=== PATIENT | female | born 1945 | race Caucasian/White ===

== ENCOUNTER 2018-10-19 09:54 | Inpatient (IN) ==
--- NOTE | 2018-09-17 11:33 | PAT Medication Instructions ---
Medication Instructions Date of Service September 17, 2018 Home Medications Allergy Shot 1 dose SC MONTHLY aspirin [Aspir-81] 81 mg PO QPM buspirone 10 mg PO BID cholecalciferol (vitamin D3) 2,000 unit PO QPM cyanocobalamin (vitamin B-12) 1,000 mcg PO QPM escitalopram oxalate [Lexapro] 10 mg PO QAM famotidine [Pepcid] 20 mg PO BID fexofenadine [Emily Allergy] 180 mg PO QAM flaxseed oil 1,000 mg PO QPM furosemide [Lasix] 20 mg PO QAM lactobacillus combination no.4 3,000 mmu cells PO QAM losartan 100 mg PO QAM metformin 500 mg PO BID multivitamin 1 cap PO QAM rosuvastatin [Crestor] 5 mg PO QPM tramadol 50 mg PO Q6H PRN Continue as directed Allergy Shot 1 dose SC MONTHLY STOP taking 2 weeks before surgery (or as soon as possible if surgery is within 2 weeks) flaxseed oil 1,000 mg PO QPM DO NOT take the morning of surgery famotidine [Pepcid] 20 mg PO BID fexofenadine [Emily Allergy] 180 mg PO QAM furosemide [Lasix] 20 mg PO QAM lactobacillus combination no.4 3,000 mmu cells PO QAM losartan 100 mg PO QAM metformin 500 mg PO BID multivitamin 1 cap PO QAM Take morning of surgery With a small sip of water, OTHERWISE NOTHING TO EAT OR DRINK AFTER MIDNIGHT: buspirone 10 mg PO BID escitalopram oxalate [Lexapro] 10 mg PO QAM tramadol 50 mg PO Q6H PRN (okay to take up to 4 hours prior to surgery if needed) Take evening before surgery aspirin [Aspir-81] 81 mg PO QPM buspirone 10 mg PO BID cholecalciferol (vitamin D3) 2,000 unit PO QPM cyanocobalamin (vitamin B-12) 1,000 mcg PO QPM famotidine [Pepcid] 20 mg PO BID metformin 500 mg PO BID rosuvastatin [Crestor] 5 mg PO QPM tramadol 50 mg PO Q6H PRN (if needed) Other Notes If you have any questions please call us at [phone] or [phone] or [phone] or [phone]
--- NOTE | 2018-09-17 11:55 | Anesthesiology Consultation ---
Date of Service September 17, 2018 Assessment & Plan (1) Encounter for pre-operative examination: - Check BSG AM DOS Chart Review Chart Review: Acceptable Risk for Surgery and Patient seen in Pre Admission Testing Teaching & Discussion Pre-Anesthesia Teaching/Discussion Notes: Instructed NPO after midnight before surgery,except medications with 15 cc of water. Medication instructions provided according to the PAT guidelines. History Surgery Operation Date: 10/19/18 07:00 Proposed Procedures p Left Total Shoulder Arthroplasty - Jett Hale DO Height/Weight Height: 5 ft 3 in Weight: 110.5 kg Allergies Allergy/AdvReac Type Severity Reaction Status Date / Time monosodium glutamate Allergy Hives Verified 09/10/18 10:21 Medications Home Medications Medication Instructions Recorded Confirmed Last Taken Allergy Shot 1 dose SC MONTHLY 09/10/18 Unknown aspirin [Aspir-81] 81 mg PO QPM 09/10/18 09/10/18 Unknown buspirone 10 mg PO BID 09/10/18 09/10/18 Unknown cholecalciferol (vitamin D3) 2,000 unit PO QPM 09/10/18 09/10/18 Unknown [Vitamin D3] cyanocobalamin (vitamin B-12) 1,000 mcg PO QPM 09/10/18 09/10/18 Unknown [Vitamin B-12] escitalopram oxalate [Lexapro] 10 mg PO QAM 09/10/18 09/10/18 Unknown famotidine [Pepcid] 20 mg PO BID 09/10/18 09/10/18 Unknown fexofenadine [Emily Allergy] 180 mg PO QAM 09/10/18 09/10/18 Unknown flaxseed oil 1,000 mg PO QPM 09/10/18 09/10/18 Unknown furosemide [Lasix] 20 mg PO QAM 09/10/18 09/10/18 Unknown lactobacillus combination no.4 3,000 mmu cells PO QAM 09/10/18 09/10/18 Unknown [Probiotic] losartan 100 mg PO QAM 09/10/18 09/10/18 Unknown metformin 500 mg PO BID 09/10/18 09/10/18 Unknown multivitamin 1 cap PO QAM 09/10/18 09/10/18 Unknown rosuvastatin [Crestor] 5 mg PO QPM 09/10/18 09/10/18 Unknown tramadol 50 mg PO Q6H PRN 09/10/18 09/10/18 Unknown Past Medical History Medical History Anxiety Degenerative disc disease Depression Diabetes mellitus, type 2 NIDDM GERD (gastroesophageal reflux disease) CONTROLLED History of fatty infiltration of liver Hyperlipidemia Hypertension Morbid obesity Osteoarthritis Palpitations FELT 2/2 STRESS/ANXIETY Past Surgical History Surgical History History of colonoscopy History of craniotomy 1999 2/2 CEREBRAL ANEURYSM History of discectomy CERVICAL History of tonsillectomy History of total knee replacement B/L History of total shoulder replacement RIGHT Past Anesthesia History No Hx of Anesthesia Complications and No Family Hx of Anesthesia Complications History of PONV No Motion Sickness Screening History of Motion Sickness: No Social History Smoking Status: Never smoker Do You Dip or Chew Tobacco: No Hx Alcohol Use: Yes Alcohol type: other alcohol intake frequency: holidays/special occasions only Hx Substance Use: No substance use type: does not use Exercise / Class Metabolic Activity II 4-5 Yardwork/Stairs/Walk up hill Review of Systems Patient denies chest pain, shortness of breath, dyspnea on exertion, cough, wheezing, palpitations. Physical Exam Vital Signs VITALS BP 120/76 P 74 TEMP 98.1 SP02 95%RA RESP 12 PHYSICAL Full neck and c-spine range of motion. Full TMJ range of motion. TMD 2.5 finger breaths Mallampati Score 2 Dentition: intact, upper front right cap Lungs: clear throughout to auscultation Cardiac: regular rate and rhythm, no murmurs noted Spine: normal Carotid arteries: negative bruit Extremities: no edema Testing Electrocardiogram Date: 09/17/18 Findings: + NSR @ (69) Chest X-Ray Date: 09/17/18 Findings: + NAD There is a right shoulder prosthesis. Laboratory Results 09/17/18 12:05 09/17/18 12:05 Blood Type A Positive 09/17/18 12:05 Antibody Screen NEGATIVE 09/17/18 12:05 PT 10.9 Seconds (9.0-12.0) 09/17/18 12:05 INR 1.1 (0.9-1.1) 09/17/18 12:05 APTT 25.6 Seconds (21.0-31.0) 09/17/18 12:05
[2018-09-17 12:55] LABS: Basophils # (auto) 0.02 K/uL (0-0.2); Basophils % (auto) 0.5 %; Eosinophils # (auto) 0.11 K/uL (0-0.5); Eosinophils % (auto) 2.7 %; Hematocrit (blood only) 39.7 % (37-47); Hemoglobin 13.3 g/dL (12.0-16.0); Immature Granulocytes # (auto) 0.01 K/uL (0.00-0.02); Immature Granulocytes % (auto) 0.2 %; Mean Corpuscular Hgb Conc 33.5 g/dL (32-36); Mean Corpuscular Volume 88.6 fL (80-100); Mean Platelet Volume 10.5 fL (7.4-10.4); Monocytes # (auto) 0.31 K/uL (0.11-0.59); Monocytes % (auto) 7.6 %; Neutrophils # (auto) 1.84 K/uL (1.4-6.5); Platelet Count 146 K/uL (130-400); RDW Coefficient of Variation 13.9 % (11.5-14.5); RDW Standard Deviation 45.2 fL (36.4-46.3); Red Blood Count 4.48 M/uL (4.2-5.4); White Blood Count 4.09 K/uL (4.8-10.8)
--- NOTE | 2018-09-17 13:09 | XRay Report ---
XR chest Pre-admission PA/Lat HISTORY: Preop. COMPARISON: None. FINDINGS: The lungs are clear. Cardiac silhouette is normal in size. No pleural effusions. No pneumot horax. There is a right shoulder prosthesis. IMPRESSION: No acute process. Electronically signed by: Hang Palacios M.D. 09/17/2018 1:08 PM
[2018-09-17 13:20] LABS: INR 1.1 (0.9-1.1); Partial Thromboplastin Ratio 0.9; Partial Thromboplastin Time 25.6 Seconds (21.0-31.0); Prothrombin Time 10.9 Seconds (9.0-12.0)
[2018-09-17 14:10] LABS: BUN Creatinine Ratio 13.1 (10-20); Creatinine Clr Calc Pharmacy 49.3 ml/min; Est GFR (African American) 50.1; Est GFR (Non-African American) 43.2; Potassium 3.9 mmol/L (3.5-5.1)
--- NOTE | 2018-10-16 15:33 | History & Physical Report ---
Date of Service October 16, 2018 Assessment & Plan (1) Primary osteoarthritis of left shoulder: We will proceed with a left total shoulder arthroplasty. Postoperatively she will be placed in a sling and kept overnight for postop medical management. She plans to use [facility] physical therapy in [place] postoperatively. Present on Admission?: Yes History of Present Illness Chief Complaint: Primary osteoarthritis of the left shoulder Primary Care Provider: Christy Galaviz MD Juliet is a pleasant 73-year-old female who is been dealing with chronic increasing left shoulder pain. X-rays and clinical examination have been diagnostic for primary osteoarthritis of the left shoulder. After failing conservative treatment, she has elected proceed with a left total shoulder arthroplasty. She did recently have a right shoulder arthroplasty done in [place]. She has done well with that. She did develop neuropraxia of the radial nerve postoperatively but that has since resolved. Allergies Allergy/AdvReac Type Severity Reaction Status Date / Time monosodium glutamate Allergy Hives Verified 09/10/18 10:21 Home Medications Home Medications Medication Instructions Recorded Confirmed Type Allergy Shot 1 dose SC MONTHLY 09/10/18 History aspirin [Aspir-81] 81 mg PO QPM 09/10/18 09/10/18 History buspirone 10 mg PO BID 09/10/18 09/10/18 History cholecalciferol (vitamin D3) 2,000 unit PO QPM 09/10/18 09/10/18 History [Vitamin D3] cyanocobalamin (vitamin B-12) 1,000 mcg PO QPM 09/10/18 09/10/18 History [Vitamin B-12] escitalopram oxalate [Lexapro] 10 mg PO QAM 09/10/18 09/10/18 History famotidine [Pepcid] 20 mg PO BID 09/10/18 09/10/18 History fexofenadine [Emily Allergy] 180 mg PO QAM 09/10/18 09/10/18 History flaxseed oil 1,000 mg PO QPM 09/10/18 09/10/18 History furosemide [Lasix] 20 mg PO QAM 09/10/18 09/10/18 History lactobacillus combination no.4 3,000 mmu cells PO QAM 09/10/18 09/10/18 History [Probiotic] losartan 100 mg PO QAM 09/10/18 09/10/18 History metformin 500 mg PO BID 09/10/18 09/10/18 History multivitamin 1 cap PO QAM 09/10/18 09/10/18 History rosuvastatin [Crestor] 5 mg PO QPM 09/10/18 09/10/18 History tramadol 50 mg PO Q6H PRN 09/10/18 09/10/18 History Past Med/Surg History Medical History Anxiety Degenerative disc disease Depression Diabetes mellitus, type 2 NIDDM GERD (gastroesophageal reflux disease) CONTROLLED History of fatty infiltration of liver Hyperlipidemia Hypertension Morbid obesity Osteoarthritis Palpitations FELT 2/2 STRESS/ANXIETY Surgical History History of colonoscopy History of craniotomy 07/07 CEREBRAL ANEURYSM History of discectomy CERVICAL History of tonsillectomy History of total knee replacement B/L History of total shoulder replacement RIGHT Social History Preferred Language: Turkmen Communication Ability: Effective Industrial Hygienist Required: No Beliefs That Will Affect Care: None Current Living Situation: Spouse Other Information That Helps Us Care for You: No Feels Safe at Home: Yes Safety Concerns: Feels Safe At This Time Smoking Status: Never smoker Do You Dip or Chew Tobacco: No Second Hand Exposure: No Tobacco Cessation Education Requested by Patient: No Hx Alcohol Use: Yes Alcohol type: other Hx Substance Use: No Review of Systems All systems reviewed & are unremarkable except as noted in HPI & below Physical Exam Constitutional: WD/WN, vitals as above Eyes: PERRL, conjunctivae normal, anicteric sclerae ENMT: external ear and nose normal, oropharynx normal Neck: trachea midline, no thyromegaly Respiratory: normal respiratory effort Cardiovascular: RRR, no murmur, no edema Gastrointestinal (Abdomen): normal bowel sounds, soft, nontender, no hepatosplenomegaly Musculoskeletal: Physical examination of the left shoulder reveals decreased range of motion and crepitis throughout. There is good strength with full can testing and external rotation. There is tenderness palpation along the anterior glenohumeral joint line. The right upper extremity is neurovascularly intact. Psychiatric: A+Ox3, euthymic affect Results & Data Diagnostic Findings Radiographs of the left shoulder show osteoarthritis of the glenohumeral joint. There is joint space narrowing, osteophyte formation, and [id number] articulation.
[~2018-10-19 09:54] MED LIST: ACETAMINOPHEN 1000 MG/100 ML IV IV ONE; ACETAMINOPHEN 500 MG TAB PO SCH; BUPIVACAINE 0.5 % 5 MG/1 ML PF 10ML VIAL ONE; CEFAZOLIN 3000MG 72.5 ML IV SCH; FAMOTIDINE 20 MG TAB PO SCH; GABAPENTIN 300 MG PO SCH; LR 500ML BOLUS IV SCH; LR 60ML/HR IV SCH; ROPIVACAINE 0.5% HCL/PF 150 MG, BUPIVACAINE 0.5% MPF 30 ML, EPINEPHrine 30MG/30ML (OR U... INFIL SCH; TRANEXAMIC ACID 1,000 MG **IV Intra-op IV SCH; TRANEXAMIC ACID 1,000 MG **IV Pre-op IV SCH
--- NOTE | 2018-10-19 10:11 | History & Physical Bridge Note ---
Date of Service October 19, 2018 History & Physical Bridge Note I have examined the patient, reviewed the History & Physical and in the interval since the performance of the History & Physical I have noted the following changes of clinical significance: no changes noted
[2018-10-19] MEDS ORDERED: fentaNYL citrate 100 MCG/2 ML VIAL IV PRN (10:31)
[2018-10-19] MEDS ORDERED: ATROPINE SULFATE 0.1 MG/ML 10ML SYR IV PRN (10:31)
[2018-10-19] MEDS ORDERED: HYDROmorphone INJ 1 MG/ML SYRINGE IV PRN (10:31)
[2018-10-19] MEDS ORDERED: ONDANSETRON INJ 2 MG/ML 2 ML VIAL IV PRN ×2 (10:31→14:53)
[2018-10-19] MEDS ORDERED: PHENYLEPHRINE 100MCG/ML 5ML SYR IV PRN (10:31)
[2018-10-19] MEDS ORDERED: ePHEDrine sulfate 50 MG/ML AMP IV PRN (10:31)
[2018-10-19] MEDS ORDERED: PROPOFOL IV EMULSION 10 MG/ML 20 ML VIAL IV ONE (10:43)
[2018-10-19] MEDS ORDERED: fentaNYL citrate 100 MCG/2 ML VIAL ONE (10:43)
[2018-10-19] MEDS ORDERED: LIDOCAINE HCL 2% 2 ML VIAL/AMP(20MG/ML) INFIL ONE (10:43)
[2018-10-19] MEDS ORDERED: ROCURONIUM BROMIDE 10 MG/ML 5 ML VIAL ONE (10:43)
[2018-10-19] MEDS ORDERED: SUCCINYLCHOLINE CHLORIDE 20 MG/ML 10 ML VIAL ONE (10:43)
[2018-10-19] MEDS ORDERED: MIDAZOLAM HCL 1 MG/ML 2ML VIAL ONE (10:43)
[2018-10-19] MEDS ORDERED: ORTHO JOINT ANESTHETIC ONE (10:51)
[2018-10-19] MEDS ORDERED: POVIDONE-IODINE OP SOLN 30 ML BTL ONE (10:52)
[2018-10-19] MEDS ORDERED: GLYCOPYRROLATE 0.2 MG/ML VIAL ONE (12:18)
[2018-10-19] MEDS ORDERED: NEOSTIGMINE METHYLSULFATE 5 MG/5 ML SYR ONE (12:18)
--- NOTE | 2018-10-19 13:18 | Operative Report ---
Post Operative Report Pre & Post Diagnosis Operation Date: 10/19/18 12:00 Pre-Op Diagnosis: Left Shoulder Degenerative Joint Disease Post-Op Diagnosis: Left Shoulder Degenerative Joint Disease Procedure Operation Date: 10/19/18 12:00 Actual Procedures p Left Total Shoulder Arthroplasty(Left) - Jett Hale DO Surgeon Jett Hale DO Information Security Risk Analyst Jett Moreira PAC Estimated Blood Loss 400 Findings Consistent with Post-Op Diagnosis Specimens Left humeral head Complications none Disposition Disposition: Recovery Room Indications Juliet is a pleasant 73-year-old female who presented my office with complaints of chronic increasing left shoulder pain. X-rays and clinical examination were diagnostic for advanced osteoarthritis of the left shoulder. After failing conservative treatment, she elected proceed with a left total shoulder arthroplasty. Description of Procedure Implants used: I used a Biomet Comprehensive total shoulder arthroplasty system with a size 12 press fit mini humeral stem, a size 42 x 18 eccentric humeral head, and a small size glenoid with a Regenerex peg. The glenoid was cemented in place with Palacos G cement. The patient arrived at [facility] for the above procedure. There were seen in the preoperative holding area and the operative extremity was identified and signed. They were given a preoperative antibiotic and an interscalene nerve block. They were taken back to the operating room, laid on table in supine position, and put under general anesthesia. They were then put into the beachchair position. The shoulder was then prepped and draped in sterile fashion. A timeout was done and the patient in the operative extremity was properly identified. A deltopectoral approach was used. Dissection was taken down through the fascia and the deltoid was retracted laterally and the conjoined tendon was retracted medially. The anterior shoulder was exposed. The long head of the biceps tendon was tenodesed to the upper border of the pectoralis major. The subscapularis was then released off the lesser tuberosity with a centimeter of cuff tissue remaining. The inferior capsule was released and the humeral head was dislocated. The rotator cuff was inspected and intact. A canal finding reamer was sent down the center of the humeral canal. Sequential reaming up to a size 12 reamer was done. Offset reamer a proximal humeral resection guide was placed. The proximal humerus was resected at 135 of inclination and 30 of retroversion. Inferior osteophytes were then removed and the glenoid was exposed. Time was spent doing an appropriate labral release. The glenoid measured to be a size small. A 3.2 mm Steinmann pin was placed in the central hole of the glenoid vault pin guide. The glenoid was then reamed with a propeller reamer. The central post cutter was then used to prepare for the central boss. The cannulated peripheral peg drill guide was then placed and 3 peg holes were drilled. The final size small glenoid was then cemented in place with Palacos G cement. Surrounding soft tissues were then injected with 100 cc of an orthopedic pain control cocktail. Once cement had dried the proximal humerus was once again exposed. Sequential broaching of the humerus up to a size 12 broach was done. Off that broach a size 42 x 18 eccentric humeral head was trialed. The shoulder was then reduced, brought through a full range of motion and felt to be stable. The shoulder was then dislocated and the broach was removed. The final size 12 mini humeral stem implant was then impacted into place. A size 42 x 18 eccentric humeral head was then impacted onto the humeral stem. The shoulder was then reduced and once again brought through a full range of motion and felt to be stable. The subscapularis was then tenodesed back to the lesser tuberosity with transosseous FiberWire sutures and side to side sutures with the arm in 45 of external rotation. 2 sutures were placed in the lateral rotator interval. A dilute betadyne lavage was then done for 3 minutes. The joint was then irrigated with normal saline solution. Hemostasis was obtained. The skin was then closed with 2-0 Vicryl, 3-0V lock suture, and tammie. A soft dressing was placed as well as a regular arm sling. The patient was then extubated and transferred to a hospital bed. There were taken to the postanesthesia care unit in stable condition. The tolerated the procedure well. I attest to the content of the Intraoperative Record and any orders documented therein. Any exceptions are noted below.
--- NOTE | 2018-10-19 14:10 | XRay Report ---
XR shoulder LT min 2V routine CLINICAL HISTORY: Post shoulder surgery postoperative COMPARISON: None. DISCUSSION: Evidence for a total left shoulder arthroplasty. Good contact between prosthetic and unde rlying bone. Expected soft tissue postoperative change IMPRESSION: Anatomic alignment post total left shoulder arthroplasty. The above report was generated using voice recognition software. It may contain grammatical, syntax or spelling errors. Electronically signed by: Ildefonso Turk M.D. 10/19/2018 2:08 PM
[2018-10-19] MEDS ORDERED: HYDROmorphone INJ 0.5 MG/0.5 ML SYR IV PRN (14:53)
[2018-10-19] MEDS ORDERED: SODIUM CHLORIDE 0.9% 1000ML 1,000 ML IV SCH (14:53)
[2018-10-19] MEDS ORDERED: METOCLOPRAMIDE HCL INJ 5 MG/ML 2 ML VIAL IV PRN (14:53)
[2018-10-19] MEDS ORDERED: NALOXONE HCL 0.4 MG/1 ML VIAL/CARP IV PRN (14:53)
[2018-10-19] MEDS ORDERED: MAGNESIUM HYDROXIDE SUSP 30 ML UDC PO PRN (14:53)
[2018-10-19] MEDS ORDERED: BISACODYL 10 MG SUPP PR PRN (14:53)
[2018-10-19] MEDS ORDERED: OXYCODONE HCL IR 5 MG TAB (IMMEDIATE RELEASE) PO PRN (14:53)
--- NOTE | 2018-10-19 15:23 | Anesthesiology Progress Note ---
Date of Service October 19, 2018 Anesthesia Post Procedure Vital Signs Vital Signs: Temp Pulse Pulse Pulse Resp BP Pulse Ox 10/19/18 15:10 36.4 C L 76 19 116/68 97 10/19/18 14:40 36.4 C L 74 18 125/76 99 10/19/18 14:25 78 17 138/71 98 10/19/18 14:15 36.3 C L 77 17 108/75 94 10/19/18 14:05 76 15 148/81 H 97 10/19/18 13:55 77 15 120/71 100 10/19/18 13:45 82 17 87/68 L 98 10/19/18 13:36 36.3 C L 89 20 93/76 L 96 10/19/18 10:27 36.4 C L 77 20 146/78 H 97 Pain Intensity Left Shoulder: Pain Intensity: 0 Transfer of Care Handoff Completed per policy Notes Mental Status: alert / awake / arousable Patient Amnestic to Procedure: Yes Nausea / Vomiting: adequately controlled Pain: adequately controlled Airway Patency, RR, SpO2: stable & adequate BP & HR: stable & adequate Hydration State: stable & adequate Anesthetic Complications: no major complications apparent Notes: Awake, doing well, no complaints. VSS
[2018-10-19] MEDS: KETOROLAC TROMETHAMINE 15 MG/ML VIAL IV SCH ×2 (16:30→21:11)
[2018-10-19] MEDS: ACETAMINOPHEN 500 MG TAB PO SCH ×2 (16:30→21:11)
[2018-10-19] MEDS: CEFAZOLIN 2000MG 2,000 MG/15 ML SYR IV SCH (19:33)
[2018-10-19] MEDS ORDERED: SENNA 8.6 MG TAB PO SCH (21:00)
[2018-10-19] MEDS ORDERED: ROSUVASTATIN CALCIUM 5 MG TAB PO SCH (21:00)
[2018-10-19] MEDS: DOCUSATE SODIUM 100 MG CAP PO SCH (21:12)
[2018-10-20] MEDS: CEFAZOLIN 2000MG 2,000 MG/15 ML SYR IV SCH (03:50)
[2018-10-20] MEDS: KETOROLAC TROMETHAMINE 15 MG/ML VIAL IV SCH ×3 (03:50→10:12)
[2018-10-20] MEDS: ACETAMINOPHEN 500 MG TAB PO SCH (05:36)
[2018-10-20 06:36] LABS: Basophils # (auto) 0.01 K/uL (0-0.2); Basophils % (auto) 0.1 %; Eosinophils # (auto) 0.01 K/uL (0-0.5); Eosinophils % (auto) 0.1 %; Hematocrit (blood only) 30.4 % (37-47); Hemoglobin 10.4 g/dL (12.0-16.0); Immature Granulocytes # (auto) 0.01 K/uL (0.00-0.02); Immature Granulocytes % (auto) 0.1 %; Lymphocytes # (auto) 1.12 K/uL (1.2-3.4); Lymphocytes % (auto) 14.6 %; Mean Corpuscular Hgb Conc 34.2 g/dL (32-36); Mean Corpuscular Volume 86.6 fL (80-100); Mean Platelet Volume 10.4 fL (7.4-10.4); Monocytes # (auto) 0.57 K/uL (0.11-0.59); Monocytes % (auto) 7.5 %; Neutrophils # (auto) 5.93 K/uL (1.4-6.5); Neutrophils % (auto) 77.6 %; Platelet Count 114 K/uL (130-400); RDW Coefficient of Variation 13.4 % (11.5-14.5); RDW Standard Deviation 42.7 fL (36.4-46.3); Red Blood Count 3.51 M/uL (4.2-5.4); White Blood Count 7.65 K/uL (4.8-10.8)
--- NOTE | 2018-10-20 07:06 | Orthopedic Progress Note ---
Date of Service October 20, 2018 Assessment & Plan (1) Primary osteoarthritis of left shoulder: Overall she is doing very well. She not having any pain in the left she will be seen by physical therapy this morning for range of motion exercises. We will use oxycodone and tramadol as needed for pain control. She is orthopedically stable for discharge today. She plans to use outpatient physical therapy and [place]. Present on Admission?: Yes Subjective Juliet was seen and examined at bedside this morning. Overall she is doing very well. She does not have any pain in the shoulder. She is already been up and walking around the hallways. She has no complaints. Physical Exam Musculoskeletal: On physical examination of the left shoulder, the dressing is clean and dry. She is wearing her sling as instructed. The interscalene nerve block is still in effect and she does not have much motion of her left hand she still has a lot of numbness in her hand. Results & Data Vital Signs (Past 12 Hours) Vital Signs Temp Pulse Resp BP Pulse Ox 10/20/18 03:43 36.6 C 73 16 116/66 97 10/19/18 23:11 36.5 C 71 18 108/63 95 Laboratory Results H & H 09/17/18 10/20/18 Range/Units 12:05 06:18 Hgb 13.3 10.4 L (12.0-16.0) g/dL Hct 39.7 30.4 L (37-47) % Coagulation 09/17/18 Range/Units 12:05 INR 1.1 (0.9-1.1) Diagnostic Findings Postoperative x-rays of the left shoulder show the prosthesis to be in anatomic alignment without any evidence of fracture, dislocation, or loosening.
--- NOTE | 2018-10-20 07:08 | Discharge Summary ---
Date of Service October 20, 2018 Admission HPI Per Admitting Provider Juliet is a pleasant 73-year-old female who is been dealing with chronic increasing left shoulder pain. X-rays and clinical examination have been diagnostic for primary osteoarthritis of the left shoulder. After failing conservative treatment, she has elected proceed with a left total shoulder arthroplasty. She did recently have a right shoulder arthroplasty done in [place]. She has done well with that. She did develop neuropraxia of the radial nerve postoperatively but that has since resolved. Specialty Data Orthopedic H & H 09/17/18 10/20/18 Range/Units 12:05 06:18 Hgb 13.3 10.4 L (12.0-16.0) g/dL Hct 39.7 30.4 L (37-47) % Coagulation 09/17/18 Range/Units 12:05 INR 1.1 (0.9-1.1) Discharge Data Consultations 10/19/18 14:53 Consult Case Management - Discharge Planning Routine Procedures Performed Operation Date: 10/19/18 12:00 Actual Procedures p Left Total Shoulder Arthroplasty(Left) - Jett Hale DO Hospital Course (1) Primary osteoarthritis of left shoulder: On October 19, 2018 Juliet arrived at [facility] and underwent a left total shoulder arthroplasty without complication. She had a general anesthetic and a left interscalene nerve block. Postoperatively she was placed in an arm sling and discharged to general orthopedic floors. Her hospital course was uneventful. On postop day #1 her H&H was stable and her pain was well controlled. She was able to participate well with physical therapy doing range of motion exercises. She was then discharged home with outpatient physical therapy. She will follow-up with orthopedics in 2 weeks. Discharge Instructions Home Medications Medication Instructions Recorded Confirmed Allergy Shot 1 dose SC MONTHLY 09/10/18 10/19/18 aspirin [Aspir-81] 81 mg PO QPM 09/10/18 10/19/18 buspirone 10 mg PO BID 09/10/18 10/19/18 cholecalciferol (vitamin D3) 2,000 unit PO QPM 09/10/18 10/19/18 [Vitamin D3] cyanocobalamin (vitamin B-12) 1,000 mcg PO QPM 09/10/18 10/19/18 [Vitamin B-12] escitalopram oxalate [Lexapro] 10 mg PO QAM 09/10/18 10/19/18 famotidine [Pepcid] 20 mg PO BID 09/10/18 10/19/18 fexofenadine [Emily Allergy] 180 mg PO QAM 09/10/18 10/19/18 flaxseed oil 1,000 mg PO QPM 09/10/18 10/19/18 furosemide [Lasix] 20 mg PO QAM 09/10/18 10/19/18 lactobacillus combination no.4 3,000 mmu cells PO QAM 09/10/18 10/19/18 [Probiotic] losartan 100 mg PO QAM 09/10/18 10/19/18 metformin 500 mg PO BID 09/10/18 10/19/18 multivitamin 1 cap PO QAM 09/10/18 10/19/18 rosuvastatin [Crestor] 5 mg PO QPM 09/10/18 10/19/18 Previous Rx's Medication Instructions Recorded oxycodone 5 - 10 mg PO Q4H PRN #20 tab 10/20/18 tramadol 50 mg PO Q6H PRN #20 tab 10/20/18
[2018-10-20 07:13] LABS: Calcium 8.6 mg/dl (8.5-10.1); Creatinine Clr Calc Pharmacy 39.9 ml/min; Est GFR (African American) 38.9; Est GFR (Non-African American) 33.6
[2018-10-20] MEDS ORDERED: METFORMIN HCL 500 MG TAB PO SCH (08:00)
--- NOTE | 2018-10-20 08:22 | Anesthesiology Progress Note ---
Date of Service October 20, 2018 Anesthesia Post Procedure Vital Signs Vital Signs: Temp Pulse Pulse Pulse Resp BP Pulse Ox 10/20/18 07:17 36.4 C L 71 18 123/71 94 10/20/18 03:43 36.6 C 73 16 116/66 97 10/19/18 23:11 36.5 C 71 18 108/63 95 10/19/18 18:43 36.6 C 94 H 19 122/72 98 10/19/18 16:38 75 75 16 113/73 98 10/19/18 15:36 36.6 C 81 18 113/62 99 10/19/18 15:10 36.4 C L 76 19 116/68 97 10/19/18 14:40 36.4 C L 74 18 125/76 99 10/19/18 14:25 78 17 138/71 98 10/19/18 14:15 36.3 C L 77 17 108/75 94 10/19/18 14:05 76 15 148/81 H 97 10/19/18 13:55 77 15 120/71 100 10/19/18 13:45 82 17 87/68 L 98 10/19/18 13:36 36.3 C L 89 20 93/76 L 96 10/19/18 10:27 36.4 C L 77 20 146/78 H 97 Pain Intensity Left Shoulder: Pain Intensity: 0 Transfer of Care Handoff Completed per policy Notes Mental Status: alert / awake / arousable Patient Amnestic to Procedure: Yes Nausea / Vomiting: adequately controlled Pain: adequately controlled Airway Patency, RR, SpO2: stable & adequate BP & HR: stable & adequate Hydration State: stable & adequate Anesthetic Complications: no major complications apparent Notes: POD #1. Doing well, has been OOB tolerating PO well. VSS. No complaints
[2018-10-20] MEDS ORDERED: ESCITALOPRAM OXALATE 10 MG TAB PO SCH (09:00)
[2018-10-20] MEDS ORDERED: FEXOFENADINE HCL 180 MG TAB PO SCH (09:00)
[2018-10-20] MEDS ORDERED: LOSARTAN POTASSIUM 50 MG TAB PO SCH (09:00)
[2018-10-20] MEDS ORDERED: FUROSEMIDE 20 MG TAB PO SCH (09:00)
[2018-10-20] MEDS ORDERED: MULTIVITAMIN TAB PO SCH (09:00)
[2018-10-20] MEDS ORDERED: NON-FORMULARY MEDICATION (Multivitamin 1 CAP) PO SCH (09:00)
[2018-10-20] MEDS: DOCUSATE SODIUM 100 MG CAP PO SCH (09:13)
== END 2018-10-20 10:37 | disposition home or self-care (01) | DRG 483 ==
LOC: ASU 09:54 → 3E 13:43